=== PATIENT | male | born 1985 | race Caucasian/White ===

== ENCOUNTER → 2019-07-14 12:03 | Outpatient (CLI) | payer OTHER, SELFPAY ==
[2019-07-07 14:39] VITALS: BMI 25.7
--- NOTE | 2019-07-14 12:07 | RAD_ITS ---
STUDY: X-RAY - PARANASAL SINUSES REASON FOR EXAM: Male, 34 years old. Left-sided facial pain TECHNIQUE: 3 view(s) of the paranasal sinuses were obtained. COMPARISON: None. FINDINGS: Normal visualized frontal, right maxillary, ethmoidal and sphenoid sinuses. Near-complete opacification of the left maxillary sinus Normal visualized facial bones. The soft tissue structures are unremarkable. RAD/Sinuses min 3 Views IMPRESSION: Left maxillary sinusitis Electronically Signed: Yunier Barnett MD at 12:47 EST , Service support ,
== END ==
PROVIDERS: Family Provider Family Medicine; PCP Family Medicine; Referring Provider Family Medicine; Visit Provider Family Medicine
DX: R09.81 Nasal congestion (principal)
CPT/HCPCS: 70220

== ENCOUNTER → 2019-11-11 07:41 | Outpatient (CLI) | payer OTHER, SELFPAY ==
[2019-07-07 14:39] VITALS: BMI 25.7
--- NOTE | 2019-11-11 07:45 | CT_ITS ---
STUDY: CT FACIAL BONES WITHOUT CONTRAST REASON FOR EXAM: Male, 34 years old. LEFT SIDED SINUSITIS RADIATION DOSAGE (If Supplied By Facility): CTDIvol = ( 33.45 ) mGy, DLP = ( 1786.89 ) mGycm TECHNIQUE: The patient was scanned in a multi detector CT scanner. Sagittal and coronal images were reconstructed. Individualized dose optimization techniques were used for this CT. COMPARISON: None. FINDINGS: Small submental benign-appearing lymph nodes. Normal orbital sanches and orbital contents. Normal nasal bones and anterior nasal spine. Normal facial bones. There is no demonstrated fracture. Opacification of the left maxillary sinus. There is soft tissue prominence in the posterior aspect of the left nasal fossa extending into the left nasopharynx. This may represent nasal polyposis. There is a mild degree of mucosal thickening of the left sphenoid sinus. The left ostiomeatal complex is obliterated due to soft tissue proliferation. CT/Sinus/Facial Bone IMPRESSION: Prominence of the soft tissues in the posterior aspect of the left nasal fossa extending into the left nasopharynx suggestive of polyposis. Opacification of the left maxillary sinus with mucosal thickening of the left sphenoid sinus. Electronically Signed: Aakash Jones, at 8:30 EDT , Service support ,
== END ==
PROVIDERS: PCP Family Medicine; Referring Provider Otolaryngology; Visit Provider Otolaryngology
DX: J32.9 Chronic sinusitis, unspecified (principal); J33.9 Nasal polyp, unspecified
CPT/HCPCS: 70486

== ENCOUNTER → 2020-02-12 11:00 | Outpatient (CLI) | payer OTHER, SELFPAY ==
[2019-07-07 14:39] VITALS: BMI 25.7
== END ==
PROVIDERS: PCP Family Medicine; Referring Provider Otolaryngology; Visit Provider Otolaryngology
DX: Z11.59 Encounter for screening for other viral diseases (principal)
CPT/HCPCS: 87635; G2023; U0003

== ENCOUNTER → 2020-02-15 13:00 | Outpatient (CLI) | payer OTHER, SELFPAY ==
[2019-07-07 14:39] VITALS: BMI 25.7
--- NOTE | 2020-02-15 13:00 | ETH_PTH ---
PATIENT: BRANDI GREEN LOC: [facility] U#:[id number] AGE/SX: 40/M ROOM: RE02/15/[address]: Dr. Chintan Macedo MD : 1985 BED: DIS: SPEC #: [id number] RECD: 02/15/20 15:05 STATUS: TRUDY LENARD #: [id number] TEREZA: 02/15/20 13:[address]: Chintan Macedo DEPT: SURGICAL PATHOLOGY RECD BY: George White ENTERED: 02/16/20 09:05 SP TYPE: ETH TISS OTHR DR: Dr. Ashvin Reyna MD [facility] Tissues: Ethmoid sinus, NOS Procedures: Surgery Specimen Level III HEADER OPERATION: Functional endoscopic sinus surgery; left maxillary antrostomy; ethmoidectomy PRE-OP DIAGNOSIS: Chronic sinusitis, choanal polyp TISSUE SUBMITTED: Left sinus contents MICROSCOPIC DIAGNOSIS Left sinus contents, excision: Sinonasal polyp, inflamed. Respiratory epithelium with mild chronic inflammation. Fragments of bone with no pathologic change. AM:greta 02/17/20 MICROSCOPIC DESCRIPTION Slides are reviewed. GROSS DESCRIPTION Received is one container labeled with the patient's name and not further designated. The specimen consists of a polypoid fragment of light moon-yellow soft tissue measuring 2.6 x 2.2 x 0.3 cm. Also present in the specimen container are multiple irregular fragments of pink-moon soft tissue measuring in aggregate 2.5 x 1.5 x 0.2 cm. The specimen is submitted in its entirety in two cassettes. / AM:greta 02/16/20 TC:1 CPT: 72591
== END ==
PROVIDERS: PCP Family Medicine; Referring Provider Otolaryngology; Visit Provider Otolaryngology
DX: J32.9 Chronic sinusitis, unspecified (principal)
CPT/HCPCS: 88304; 88305

== ENCOUNTER → 2023-02-19 | Outpatient (CLI) | payer OTHER, SELFPAY ==
[2023-02-19 14:10] LABS: Cholesterol 212 mg/dL (200); Glucose 91 mg/dL (74-106); High Density Lipoprotein 39 mg/dL; Triglycerides 341 mg/dL; Very Low Density Lipoprotein 68 mg/dL (5-40)
== END | disposition home or self-care (01) ==
LOC: MFPLAB 10:02
PROVIDERS: PCP Family Medicine; Visit Provider Family Medicine
DX: Z00.00 Encounter for general adult medical examination without abnormal findings (principal)
CPT/HCPCS: 36415; 80061; 82947

== ENCOUNTER 2023-06-27 06:42 | Day surgery (SDC) | payer OTHER, SELFPAY ==
[2023-06-27 07:24] VITALS: BP 153/91; PULSE 90; RESP 16; TEMP 36.7; O2SAT 99; BMI 32.0
[2023-06-27] MEDS: Lactated Ringers 1,000 ML 15 ML IV (07:28)
--- NOTE | 2023-06-27 08:54 | HP.PCM_ITS ---
History and Physical Date of Admission: 06/27/23 Intake Vital Signs 01/30/2213:12 06/05/2312:55 Height 6 ft 1 in 6 ft 1 in Weight: 244 lb BMI 32.1 BP 110/74 Blood Pressure Location Rt brachial Position Sitting Respiration 16 Intake Visit Reasons: UMBILICAL HERNIA Chief Complaint: umbilical hernia Screw Remover Required: No Is patient in pain?: Yes (umbilicus) Allergies No Known Allergies Allergy (Unverified 06/05/23 12:56) Medications citalopram 40 mg tablet PO #90 tabs 07/07/19 [History Confirmed 06/05/23] PFSH Medical History Anxiety Congenital pectus excavatum Surgical History H/O sinus surgery Social History Smoking Status: Never smoker alcohol intake: current HPI HPI HPI: Patient was seen in the recent past for his umbilical hernia but he decided not to have surgery in summer. He reports his hernia is growing larger and he would like it addressed at this point. He does not report any increased pain or nausea or vomiting. He just says the hernia feels larger. ROS General General: No weight change, appetite, fatigue, colon cancer, breast cancer or weakness HEENT HEENT: No difficulty swallowing, eye injury, eye surgery, swollen glands or hoarseness Endo Endocrine: No thyroid disease, diabetes mellitus, thyroid cancer, Hair loss, heat intolerance or cold intolerance Skin Skin: No rash or changing moles Breast Breast: No left breast lump, right breast lump, nipple discharge, breast pain, abnormal mammogram, abnormal US or breast enlargement Musc Musculoskeletal: No back problems, arthritis, rheumatoid arthritis, gout or joint pain Cardio Cardiovascular: No murmur, pacemaker, heart disease, atrial fibrillation, high blood pressure, heart attack, heart stent, palpitations, shortness of breat with exertion or chest pain Psych Psychiatric: Yes anxiety; No depression or hearing voices Resp Respiratory: No shortness of breath, No sleep apnea, No cough, No COPD, No asthma, No emphysema and No wheezing Gastro Gastrointestinal: No abdominal pain, No nausea or vomiting, No diarrhea, No constipation, No blood in stool, No acid reflux, No hemorrhoids, No ulcers, No gallbladder problem and No black,tarry stools [place] Hematologic: No blood thinners, No blood disorders, No bleeding, No anemia and No blood clots Neuro Neurologic: No system reviewed and no additional complaints, except as documented, No as per HPI, No abnormal gait, No abnormal hearing, No abnormal movements, No abnormal speech, No behavioral changes, No burning sensations, No confusion, No convulsions, No disequilibrium, No dizziness, No localized weakness, No frequent falls, No headache(s), No lack of coordination, No loss of vision, No memory loss, No numbness, No other visual disturbances, No radicular pain, No restless legs, No sensory deficit, No syncope, No tingling, No tremor(s), No weakness and No other Exam Const General: cooperative Orientation: alert and oriented x3 HENMT Head: normal to inspection Neck Neck: normal visual inspection and full ROM Chest Chest palpation & inspection: normal inspection of the chest Resp Effort & Inspection: normal respiratory effort Auscultation: clear to auscultation bilaterally Cardio Rate: regular rate Rhythm: regular rhythm GI Inspection: non-distended Palpation: soft, hernia umbilical and nontender Skin General: no rashes or lesions noted Neuro General: patient alert and patient oriented x3 Extrem General: full ROM Psych Appearance: grossly normal Mental Status: mental status grossly normal Assessment and Plan Assessment and Plan (1) Umbilical hernia: Qualifiers: Obstruction and gangrene presence: without obstruction or gangrene Qualified Code(s): K42.9 - Umbilical hernia without obstruction or gangrene Plan: Patient has a small umbilical hernia. I once again discussed open repair with possible mesh if the defect is over 1 cm. I discussed the risks including but not limited to bleeding, infection, injury to other organs such as the bowel or underlying fat. Patient understands the risks and is willing to proceed. I discussed mesh placement in detail if it is necessary. Patient understands and is willing to have mesh placed if necessary. Amari Walker MD Pager: [facility] [address] [place] [address], [address] [place] [address] Office: I have examined the patient and the H&P has been reviewed. There are no clinical changes since date of exam.
[2023-06-27] MEDS: Cefazolin 2 GM in 0.9% Normal Saline (100mL Bag) 100 ML IV (09:03)
[2023-06-27] MEDS: Bupivacaine Mpf 0.5% 30 ML VIAL (09:16)
[2023-06-27 09:46] VITALS: BP 127/78; BP 153/91; PULSE 98; RESP 16; TEMP 36.7; O2SAT 98
--- NOTE | 2023-06-27 09:55 | PCM.OPRPT ---
Report of Operation Date of Procedure: 06/27/23 Pre-Operative Diagnosis: Umbilical hernia less than 3 cm Post-Operative Diagnosis: Same Surgery/Procedure Performed:: Umbilical hernia repair Type of Anesthesia: General/Regional Specimen's removed: None Estimated Blood Loss (mL): 5 Description of Procedure: Patient was brought back to the operating room and general anesthesia was induced. The abdomen was prepped and draped in usual sterile fashion. A curvilinear incision was marked superior to the umbilicus and injected with local anesthetic. Incision was made with scalpel and deepened to subcutaneous tissue. Hernia sac was identified and dissected free from the surrounding attachments and reduced. The defect was approximately 1 cm in diameter. It was reapproximated using interrupted #1 Nurolon sutures. The subcutaneous tissue was irrigated and suctioned dry. The umbilical stalk was sutured to the fascia using 3-0 Vicryl suture. The incision was closed with interrupted 3-0 Vicryl's and a running 4-0 Monocryl suture. Steri-Strips and a cottonball bandage were applied. Patient tolerated procedure well was brought to PACU in stable condition. Grafts/Implants Used: No mesh used Admit VTE Documentation VTE Mechan Device Prophylaxis: SCD's
--- NOTE | 2023-06-27 09:56 | DCINST_ITS ---
Discharge Instructions Diet Discharge Diet: Light diet - advance as tolerated Activity Discharge Activity: May Not Drive (for 2-3 days or while taking narcotic pain meds.) and May Shower (with the bandage in place 1-2 days after surgery.) Lifting Restrictions: 20 pounds for 4 weeks Additional Activity Instructions:: Climbing stairs is fine, walking is encouraged. Sitting in bed may be uncomfortable. Sitting up using your lateral muscles (sitting up sideways) is usually more comfortable. Do not drive, work heavy equipment or sign legal documents for 24 hours. Pain medications may cause nausea, you should typically eat light foods as you take your pain medications. Pain medications may also cause constipation. If you have difficulty with this, discuss with your doctor. Dressing / Incision Call your doctor if your incision/area has: Continuous Slow Oozing, Sudden Increased Bleeding, Increased Pain/ Swelling, Increased Redness and Foul Smelling Discharge Call your doctor if you observe: Fever of 101 or Higher Suture Line Care: Avoid Pulling/Pushing and Avoid Pinching/Bending Remove Dressing in: 2 days (Remove clear bandages in 2 days, remove Steri-Strips in 7 to 10 days.) Follow Up Care Please Follow Up With: Amari Walker MD When: Please call to schedule 2 week follow up appointment. [phone] Test Results: Test results from this visit will be discussed in further detail at your follow- up appointment, if applicable. Discharge Plan Admission Attending Provider: Amari Walker Primary Care Provider: Scottie Reyna Discharge Orders/Prescriptions Prescriptions: New oxycodone 5 mg tablet 5 - 10 mg PO Q6H PRN (Reason: pain) 5 Days Qty: 20 0RF No Action citalopram 40 mg tablet 40 mg PO DAILY Qty: 90 Referrals / Follow Up: Scottie Reyna MD [Primary Care Provider] - Disposition Disposition (needs filled in before D/C Order can be placed): Home, Self Care
[2023-06-27 10:00] VITALS: BP 114/74; BP 153/91; PULSE 91; RESP 16; O2SAT 96
[2023-06-27 10:15] VITALS: BP 116/72; BP 153/91; PULSE 89; RESP 16; TEMP 36.9; O2SAT 97
[2023-06-27 11:44] VITALS: BP 125/79; BP 153/91; PULSE 82; RESP 16; TEMP 36.6; O2SAT 97
== END 2023-06-27 11:58 | disposition home or self-care (01) ==
LOC: SDC 06:42 → AC 06:44
PROVIDERS: PCP Family Medicine; Referring Provider Surgery; Visit Provider Surgery
PROC: (CPT 49591; principal; 2023-06-27 08:45)
DX: K42.9 Umbilical hernia without obstruction or gangrene (principal); F41.9 Anxiety disorder, unspecified; Z79.899 Other long term (current) drug therapy
CPT/HCPCS: 49591; 00830; J7120; J2405

== ENCOUNTER → 2024-02-13 | Outpatient (CLI) | payer OTHER, SELFPAY ==
[2024-02-13 17:17] LABS: Anion Gap 7 (5-15); BUN 15 mg/dL (7-18); BUN/Creat Ratio 18.7 RATIO (10-20); Calcium,Total 9.3 mg/dL (8.5-10.1); Chloride 106 mmol/L (98-107); Cholesterol 220 mg/dL (200); EST Glomerular Filtration Rate 114 mL/min (>60); Est Glom Filt Rate - Afr Amer 138 mL/min (>60); Glucose 97 mg/dL (74-106); High Density Lipoprotein 44 mg/dL; Potassium 4.6 mmol/L (3.5-5.1); Sodium Level 140 mmol/L (136-145); Triglycerides 260 mg/dL; Very Low Density Lipoprotein 52 mg/dL (5-40)
== END | disposition home or self-care (01) ==
LOC: MFPLAB 08:26
PROVIDERS: PCP Family Medicine; Visit Provider Family Medicine
DX: Z13.220 Encounter for screening for lipoid disorders (principal); Z13.1 Encounter for screening for diabetes mellitus
CPT/HCPCS: 36415; 80048; 80061

== ENCOUNTER → 2025-01-01 | Outpatient (CLI) | payer OTHER, SELFPAY ==
[2025-01-01 10:24] LABS: Hematocrit 42.8 % (40-54); Hemoglobin 14.7 g/dL (13.0-16.5); Mean Corp Hgb Conc 34.3 g/dL (32-36); Mean Corpuscular Hgb 31.8 pg (27.0-32.0); Mean Corpuscular Volume 92.6 fL (80-94); Mean Platelet Vol. 10.3 fl (6.2-12.0); Platelet Count 240 K/mm3 (150-450); RBC Distribution Width CV 11.7 % (11.6-14.6); RBC Distribution Width SD 39.8 fl (35.1-43.9); Red Blood Count 4.62 M/mm3 (4.6-6.2); White Blood Count 5.6 K/mm3 (4.4-11.0)
[2025-01-01 10:56] LABS: Anion Gap 12 (5-15); BUN 13 mg/dL (4-19); BUN/Creat Ratio 16.2 RATIO (10-20); Calcium,Total 9.5 mg/dL (7.6-11.0); Carbon Dioxide 23.5 mmol/L (21.0-32.0); Chloride 103 mmol/L (98-108); Cholesterol 191 mg/dL (<=200); Creatinine, Serum 0.79 mg/dL (0.70-1.20); EST Glomerular Filtration Rate 115 (>60); Glucose 90 mg/dL (70-99); High Density Lipoprotein 34 mg/dL; Low Density Lipoprotein Calc. 101 mg/dL; Potassium 4.2 mmol/L (3.3-5.1); Sodium Level 138 mmol/L (133-145); Triglycerides 279 mg/dL; Very Low Density Lipoprotein 56 mg/dL (5-40)
== END | disposition home or self-care (01) ==
LOC: MFPLAB 08:46
PROVIDERS: PCP Family Medicine; Referring Provider Family Medicine; Visit Provider Family Medicine
DX: Z13.1 Encounter for screening for diabetes mellitus (principal)
CPT/HCPCS: 36415; 80048; 80061; 85027

== ENCOUNTER → 2025-01-05 | Outpatient (CLI) | payer OTHER, SELFPAY ==
[2025-01-05 17:09] LABS: Hemoglobin A1c 5.1 % (<=5.6)
[2025-01-05 17:17] LABS: AST(SGOT) 22 U/L (<=37); Alanine Aminotransfer ALT/SGPT 30 U/L (<=46); Albumin, Serum 4.3 g/dL (3.5-5.0); Alkaline Phosphatase 91 U/L (40-129); Bilirubin, Direct 0.17 mg/dL (0.00-0.30); Globulin 2.8 g/dL (2.2-4.2); Protein, Total 7.1 g/dL (5.9-8.4); Total Bilirubin 0.49 mg/dL (0.00-1.30)
== END | disposition home or self-care (01) ==
LOC: LABSPEC 16:13
PROVIDERS: PCP Family Medicine; Referring Provider Family Medicine; Visit Provider Family Medicine
DX: E78.1 Pure hyperglyceridemia (principal); F10.10 Alcohol abuse, uncomplicated
CPT/HCPCS: 80076; 83036; 84443